=== PATIENT | male | born 1990 | race Two or more races ===

== ENCOUNTER 2022-02-15 16:58 | Emergency (ER) | payer OTHER ==
[~2022-02-15] VITALS: Ht 170.2 cm; Wt 65.8 kg
--- NOTE | 2022-02-15 18:00 | NUR ---
Pt was triaged and brought back to the ER waiting room, the ER is saturated and there are no beds available.
--- NOTE | 2022-02-15 20:10 | NUR ---
Dr Hatfield at bedside MSE in progress
--- NOTE | 2022-02-15 20:29 | NUR ---
Xray at bedside.
[2022-02-15] MEDS ORDERED: HYDROCODONE/APAP 10-325 MG TABLET PO ONE (20:30)
[2022-02-15] MEDS ORDERED: HYDROCODONE/APAP 10-325 MG TABLET ONE (20:34)
[2022-02-15 20:35] LABS: HEMATOCRIT 42.6 % (36.7-47.1); MEAN CORPUSCULAR HEMOGLOBIN 32.9 uug (23.8-33.4); MEAN CORPUSCULAR VOLUME 93.2 fL (73.0-96.2); PLATELET COUNT (AUTO) 341 K/uL (152-348)
[2022-02-15] MEDS ORDERED: HYDR-3980 PO (21:04)
--- NOTE | 2022-02-15 21:18 | NUR ---
Patient discharged to home in stable condition. Written and verbal after care instructions given. Instructed patient not to drive. Patient verbalizes understanding of instructions. Given rx. Stressed follow up or return to ER for worsening s/s.
[2022-02-15 21:20] VITALS: BP 133/76
== END 2022-02-15 21:21 | disposition home or self-care (01) ==
LOC: ER 18:04
DX: G89.21 Chronic pain due to trauma (principal); M25.572 Pain in left ankle and joints of left foot
CPT/HCPCS: 36415; 73610; 85025; A4663

== ENCOUNTER 2023-05-30 13:47 | Emergency (ER) | payer MEDICAID, OTHER ==
[~2023-05-30] VITALS: Ht 172.7 cm; Wt 72.6 kg
[~2023-05-30 13:47] MED LIST: HYDR-3980 PO
[2023-05-30] MEDS ORDERED: LIDOCAINE HCL 2% 20 ML VIAL ONE (14:15)
[2023-05-30] MEDS: LIDOCAINE 2%-EPI 1:100,000 20 ML VIAL IJ ONE (14:31)
[2023-05-30] MEDS ORDERED: NEOMY/BACITRA/POLYMYXIN B OINT UD PACKET TP ONE (14:57)
[2023-05-30] MEDS: NEOMY/BACITRA/POLYMYXIN B OINT UD PACKET TP ONE (15:07)
[2023-05-30 15:09] VITALS: BP 121/64; TEMP 98.4; O2SAT 99
== END 2023-05-30 15:09 | disposition home or self-care (01) ==
LOC: ER 13:47
DX: S01.111A Laceration without foreign body of right eyelid and periocular area, initial encounter (principal); Z79.899 Other long term (current) drug therapy; W26.8XXA Contact with other sharp object(s), not elsewhere classified, initial encounter; Y93.89 Activity, other specified; Y92.89 Other specified places as the place of occurrence of the external cause; Y99.8 Other external cause status
CPT/HCPCS: 12011; 99282; J3490; A4606; A4663

== ENCOUNTER 2024-04-03 00:30 | Emergency (ER) | payer MEDICAID ==
[~2024-04-03] VITALS: Ht 172.7 cm; Wt 77.1 kg
[2024-04-03 04:16] LABS: BASOPHILS # (AUTO) 0.1 K/UL (0.0-0.2); BASOPHILS % (AUTO) 1.3 % (0.0-2.0); EOSINOPHILS # (AUTO) 0.3 K/uL (0.0-0.7); EOSINOPHILS % (AUTO) 4.1 % (0.0-7.0); HEMATOCRIT 35.6 % (36.7-47.1); HEMOGLOBIN 12.3 g/dL (12.5-16.3); LYMPHOCYTES # (AUTO) 1.4 K/uL (0.8-4.8); LYMPHOCYTES % (AUTO) 19.4 % (20.5-51.5); MEAN CORPUSCULAR HEMOGLOBIN 31.1 uug (23.8-33.4); MEAN CORPUSCULAR HGB CONC 35 g/dL (32.5-36.3); MEAN CORPUSCULAR VOLUME 90.1 fL (73.0-96.2); MONOCYTES # (AUTO) 0.8 K/uL (0.1-1.30); MONOCYTES % (AUTO) 11.9 % (0.0-11.0); NEUTROPHILS # (AUTO) 4.4 K/uL (1.8-8.9); NEUTROPHILS % (AUTO) 63.3 % (38.5-71.5); PLATELET COUNT (AUTO) 425 K/uL (152-348); RED BLOOD CELL COUNT(AUTO) 3.95 MIL/uL (4.06-5.63); RED CELL DISTRIBUTION WIDTH 13.3 % (12.1-16.2)
[2024-04-03 04:23] LABS: DIFFERENTIAL COMMENT 1
[2024-04-03 04:26] LABS: CALCIUM 8.2 mg/dL (8.5-10.1); CREATININE 0.8 mg/dL (0.6-1.3)
[2024-04-03 04:39] LABS: ALBUMIN 3.8 g/dL (3.4-5.0); BILIRUBIN,TOTAL 0.3 mg/dL (0.2-1.0); THYROID STIMULATING HORMONE 2.682 mIU/mL (0.358-3.740); TOTAL PROTEIN, SERUM 7.9 g/dL (6.4-8.2)
[2024-04-03 08:55] VITALS: BP 121/77; O2SAT 99
== END 2024-04-03 08:56 | disposition home or self-care (01) ==
LOC: ER 00:34
DX: R60.0 Localized edema (principal); M79.604 Pain in right leg; M79.605 Pain in left leg
CPT/HCPCS: 36415; 84443; 85025; A4606; A4663